=== PATIENT | female | born 1940 | race Caucasian/White ===

== ENCOUNTER 2017-01-28 04:02 | Emergency (ER) | payer OTHER ==
[~2017-01-28] VITALS: Ht 157.5 cm; Wt 95.0 kg
--- NOTE | 2017-01-28 04:11 | ERD ---
ER Documentation Chief Complaint Chief Complaint Abdominal pain HPI The patient is a 77-year-old female, presenting to the ER because of diffuse abdominal pain last couple days, worse tonight. She also complains of diarrhea tonight, denies fever, chills, neck pain, chest pain, dyspnea. She was hospitalized recently at [facility] about 2 weeks ago. She denied dysuria. She does not smoke nor drink, Past medical history: Hypertension, diabetes mellitus Past Surgical history: History of small bowel obstruction ROS All systems reviewed and are negative except as per history of present illness. Physical Exam Vitals Vital Signs Date Time Temp Pulse Resp B/P Pulse Ox O2 Delivery O2 Flow Rate FiO2 01/28/17 04:16 98.5 105 18 121/60 100 Physical Exam Const: No acute distress. Head: Atraumatic. Eyes: Normal Conjunctiva. ENT: Normal External Ears, Nose and Mouth. Neck: Full range of motion. No meningismus. Resp: Clear to auscultation bilaterally. Cardio: Regular rate and rhythm. Abd: Soft, non distended, normal bowel sounds, diffuse abdominal tenderness, no rigidity, rebound, CVA tenderness Skin: No petechiae or rashes. Back: No midline or flank tenderness. Ext: No cyanosis, or edema. Neur: Awake and alert. No focal deficit Psych: Normal Mood and Affect. Result Diagram: 01/28/1744401/28/17444 Results 24 hrs Laboratory Tests Test 01/28/17 04:45 White Blood Count 14.710^3/ul Red Blood Count 5.1010^6/ul Hemoglobin 13.9g/dl Hematocrit 43.0% Mean Corpuscular Volume 84.3fl Mean Corpuscular Hemoglobin 27.3pg Mean Corpuscular Hemoglobin Concent 32.3g/dl Red Cell Distribution Width 13.7% Platelet Count 19665^3/UL Mean Platelet Volume 9.2fl Neutrophils % 77.2% Lymphocytes % 17.2% Monocytes % 3.2% Eosinophils % 1.0% Basophils % 0.4% Nucleated Red Blood Cells % 0.0/100WBC Neutrophils # 11.310^3/ul Lymphocytes # 2.510^3/ul Monocytes # 0.510^3/ul Eosinophils # 0.110^3/ul Basophils # 0.110^3/ul Nucleated Red Blood Cells # 0.010^3/ul Prothrombin Time 13.8Sec Prothrombin Time Ratio 1.1 INR International Normalized Ratio 1.06 Activated Partial Thromboplast Time 31.5Sec Sodium Level 128mmol/L Potassium Level 5.0mmol/L Chloride Level 97mmol/L Carbon Dioxide Level 21mmol/L Anion Gap 15 Blood Urea Nitrogen 20mg/dl Creatinine 1.43mg/dl Glucose Level 184mg/dl Lactic Acid Level 2.8mmol/L Calcium Level 9.0mg/dl Total Bilirubin 0.2mg/dl Direct Bilirubin 0.00mg/dl Indirect Bilirubin 0.2mg/dl Aspartate Amino Transf (AST/SGOT) 21IU/L Alanine Aminotransferase (ALT/SGPT) 20IU/L Alkaline Phosphatase 88IU/L Troponin I 0.016ng/ml Total Protein 8.5g/dl Albumin 3.7g/dl Globulin 4.80g/dl Albumin/Globulin Ratio 0.77 Current Medications Medications (Trade) Dose Ordered Sig/Irma Route PRN Reason Start Time Stop Time Status Last Admin Dose Admin Sodium Chloride 2,950 ml @ 2,950 mls/hr BOLUS X1 ONCE IV 01/28/17 06:00 01/28/17 06:59 Vancomycin HCl 250 ml @ 125 mls/hr ONCE IVPB 01/28/17 06:00 01/28/17 07:59 Piperacillin Sod/ Tazobactam Sod (Zosyn 3.375gm/ 50 ml (Pmx)) 50 ml @ 0 mls/hr ONCE ONCE IV 01/28/17 06:00 01/28/17 06:01 Procedures/[place] [address] Radiology Main Line: [phone] DIAGNOSTIC IMAGING REPORT Patient: OMARI RAYA : 1940 Age: 77 Sex: F MR #: [id number] DOS: 01/28/17 0411 Ordering MD: NASH LAZO MD Location: E/R Room/Bed: PROCEDURE: XR Chest. CLINICAL INDICATION: Possible Sepsis TECHNIQUE: Single portable view of the chest was obtained . COMPARISON: None FINDINGS: Low lung volumes with lower lobe compressive subsegmental atelectasis more significant on the left side. The cardiomediastinal silhouette is mildly prominent. No evidence of congestive heart failure, consolidation, or pneumothorax. IMPRESSION: 1. Low lung volumes with lower lobe compressive subsegmental atelectasis more significant on the left side. 2. Mild cardiomegaly. RPTAT: HRSR Physician Aster Date Time Electronically viewed and signed by Tristian Coppola Physician on 01/28/2017 05 :49 RR/ CC: NASH LAZO MD [place] [address] Radiology Main Line: [phone] DIAGNOSTIC IMAGING REPORT Patient: OMARI RAYA : 1940 Age: 77 Sex: F MR #: [id number] DOS: 01/28/17 0420 Ordering MD: NASH LAZO MD Location: E/R Room/Bed: PROCEDURE: CT Abdomen and pelvis without contrast. CLINICAL INDICATION: Abdominal pain. TECHNIQUE: CT scan of the abdomen and pelvis was performed on a multi- detector high-resolution CT scanner. Contiguous axial images were obtained from the lung bases to the ischial tuberosities without intravenous contrast. Coronal and sagittal reformatted images were also obtained. Images were reviewed on the PACS workstation. One or more of the following dose reduction techniques were used: - Automated exposure control. - Adjustment of the mA and/or kV according to patient size. - Use of iterative reconstruction technique. Exam CTD/vol = 13.04 mGy. Total exam DLP = 735.69 mGy-cm. COMPARISON: None. FINDINGS: Evaluation of the lung bases demonstrates mild bibasilar atelectasis and interstitial pulmonary fibrosis. There is bilateral peribronchial thickening. There are small right hilar calcified lymph nodes. Abdomen: The liver is normal in size. There is no focal mass or dilatation of the biliary tree. The gallbladder is not distended. Multiple gallstones are identified. The spleen, pancreas and bilateral adrenal glands are within normal limits. Bilateral kidneys are normal in size with no contour deforming mass identified. There is a 3 mm calculus within the right renal pelvis. There are punctate right renal calculi. There is no radiopaque ureteral calculus identified. There is no hydronephrosis or hydroureter. There is no retroperitoneal adenopathy. The abdominal aorta is of normal caliber with extensive atherosclerotic calcifications. There are anastomotic sutures at the rectosigmoid junction. There is an area of fatty stranding within the left lower abdomen. There is no bowel obstruction or free air. A normal appendix is identified. There is no diverticulosis or diverticulitis. There is no ascites. Pelvis: The bladder is unremarkable. The uterus and adnexa are within normal limits. There is no significant pelvic adenopathy or free fluid. Evaluation of the osseous structures demonstrates no suspicious lytic or blastic lesion. IMPRESSION: Mild bibasilar atelectasis and interstitial pulmonary fibrosis. There is bilateral peribronchial thickening. Cholelithiasis. Nonobstructing right renal calculi. Vascular calcifications reflective of atherosclerosis. Area of fatty stranding within the left lower abdomen could represent scarring or panniculitis. Otherwise no acute abnormality identified within the abdomen and pelvis. .Jarett Patterson MD, MD Date Time Electronically viewed and signed by .Jarett Patterson MD, MD on 01/28/2017 05:27 .T/ CC: NASH LAZO MD Gallbladder US is pending EKG: Read by emergency physician Rate/Rhythm: Normal Sinus Rhythm 97 beats/min QRS, ST, T-waves: No ST elevation, no T inversion, low voltage Impression: Abnormal EKG MEDICAL MAKING DECISION: The patient is a 77-year-old female, presenting with acute severe sepsis, acute biliary colic. She was treated with normosaline 30 mL/kg IV, mycin IV, Zosyn IV The differential diagnoses considered include but are not limited to cholelithiasis, cholecystitis, cystitis, pancreatitis, hepatitis, gastritis, peptic ulcer disease, gastric ulcer, appendicitis, diverticulitis, cholangitis, choledocholithiasis, partial small bowel obstruction. Admit MDM: Patient's infectious symptoms have not stabilized and the patient is at risk of rapid decompensation. The patient will be admitted for careful hydration, antibiotic therapy, and infectious source control. Severe Sepsis criteria: Infectious source: unknown End organ damage indicated by: Lactate > 2.0 mmol/L Sepsis Management: Time of recognition of severe sepsis/septic shock:5:45 am Within 3 hours of recognition: Blood cultures x 2 before broad-spectrum antibiotics: Yes 30 ml/kg NS bolus completed Initial lactate 2.8 Repeat lactate pending Septic Shock Assessment: Any lactic acid > 4.0 no Persistent hypotension (SBP < 90 or 40 mmHg drop, MAP < 65) despite 30 mL/kg IV fluid bolusno Critical Care: Critical care time 35 minutes Emergent fluid management while maintaining close respiratory support. Provision of immediate and broad-spectrum antibiotic therapy. Simultaneous assessment for possible sources in order to direct targeted therapy. Consideration for invasive and chemical support to prevent cardiopulmonary collapse. Departure Diagnosis: Primary Impression: Severe sepsis Additional Impressions: Biliary colic Hyponatremia Renal insufficiency Condition: Stable Comments I discussed the findings with the patient. I am waiting to discuss the patient with his physician from [facility]. She will be transferred to [facility] Disclaimer: Inadvertent spelling and grammatical errors are likely due to EHR/ dictation software use and do not reflect on the overall quality of patient care. Also, please note that the electronic time recorded on this note does not necessarily reflect the actual time of the patient encounter. NASH LAZO MD Jan 28, 2017 04:11
--- NOTE | 2017-01-28 04:11 | ERD ---
ER Documentation Chief Complaint Chief Complaint Abdominal pain HPI The patient is a 77-year-old female, presenting to the ER because of diffuse abdominal pain last couple days, worse tonight. She also complains of diarrhea tonight, denies fever, chills, neck pain, chest pain, dyspnea. She was hospitalized recently at [facility] about 2 weeks ago. She denied dysuria. She does not smoke nor drink, Past medical history: Hypertension, diabetes mellitus Past Surgical history: History of small bowel obstruction ROS All systems reviewed and are negative except as per history of present illness. Physical Exam Vitals Vital Signs Date Time Temp Pulse Resp B/P Pulse Ox O2 Delivery O2 Flow Rate FiO2 01/28/17 04:16 98.5 105 18 121/60 100 Physical Exam Const: No acute distress. Head: Atraumatic. Eyes: Normal Conjunctiva. ENT: Normal External Ears, Nose and Mouth. Neck: Full range of motion. No meningismus. Resp: Clear to auscultation bilaterally. Cardio: Regular rate and rhythm. Abd: Soft, non distended, normal bowel sounds, diffuse abdominal tenderness, no rigidity, rebound, CVA tenderness Skin: No petechiae or rashes. Back: No midline or flank tenderness. Ext: No cyanosis, or edema. Neur: Awake and alert. No focal deficit Psych: Normal Mood and Affect. Result Diagram: 01/28/1744401/28/17444 Results 24 hrs Laboratory Tests Test 01/28/17 04:45 White Blood Count 14.710^3/ul Red Blood Count 5.1010^6/ul Hemoglobin 13.9g/dl Hematocrit 43.0% Mean Corpuscular Volume 84.3fl Mean Corpuscular Hemoglobin 27.3pg Mean Corpuscular Hemoglobin Concent 32.3g/dl Red Cell Distribution Width 13.7% Platelet Count 13057^3/UL Mean Platelet Volume 9.2fl Neutrophils % 77.2% Lymphocytes % 17.2% Monocytes % 3.2% Eosinophils % 1.0% Basophils % 0.4% Nucleated Red Blood Cells % 0.0/100WBC Neutrophils # 11.310^3/ul Lymphocytes # 2.510^3/ul Monocytes # 0.510^3/ul Eosinophils # 0.110^3/ul Basophils # 0.110^3/ul Nucleated Red Blood Cells # 0.010^3/ul Prothrombin Time 13.8Sec Prothrombin Time Ratio 1.1 INR International Normalized Ratio 1.06 Activated Partial Thromboplast Time 31.5Sec Sodium Level 128mmol/L Potassium Level 5.0mmol/L Chloride Level 97mmol/L Carbon Dioxide Level 21mmol/L Anion Gap 15 Blood Urea Nitrogen 20mg/dl Creatinine 1.43mg/dl Glucose Level 184mg/dl Lactic Acid Level 2.8mmol/L Calcium Level 9.0mg/dl Total Bilirubin 0.2mg/dl Direct Bilirubin 0.00mg/dl Indirect Bilirubin 0.2mg/dl Aspartate Amino Transf (AST/SGOT) 21IU/L Alanine Aminotransferase (ALT/SGPT) 20IU/L Alkaline Phosphatase 88IU/L Troponin I 0.016ng/ml Total Protein 8.5g/dl Albumin 3.7g/dl Globulin 4.80g/dl Albumin/Globulin Ratio 0.77 Current Medications Medications (Trade) Dose Ordered Sig/Irma Route PRN Reason Start Time Stop Time Status Last Admin Dose Admin Sodium Chloride 2,950 ml @ 2,950 mls/hr BOLUS X1 ONCE IV 01/28/17 06:00 01/28/17 06:59 Vancomycin HCl 250 ml @ 125 mls/hr ONCE IVPB 01/28/17 06:00 01/28/17 07:59 Piperacillin Sod/ Tazobactam Sod (Zosyn 3.375gm/ 50 ml (Pmx)) 50 ml @ 0 mls/hr ONCE ONCE IV 01/28/17 06:00 01/28/17 06:01 Procedures/[place] [address] Radiology Main Line: [phone] DIAGNOSTIC IMAGING REPORT Patient: OMARI RAYA : 1940 Age: 77 Sex: F MR #: [id number] DOS: 01/28/17 0411 Ordering MD: NASH LAZO MD Location: E/R Room/Bed: PROCEDURE: XR Chest. CLINICAL INDICATION: Possible Sepsis TECHNIQUE: Single portable view of the chest was obtained . COMPARISON: None FINDINGS: Low lung volumes with lower lobe compressive subsegmental atelectasis more significant on the left side. The cardiomediastinal silhouette is mildly prominent. No evidence of congestive heart failure, consolidation, or pneumothorax. IMPRESSION: 1. Low lung volumes with lower lobe compressive subsegmental atelectasis more significant on the left side. 2. Mild cardiomegaly. RPTAT: HRSR Physician Aster Date Time Electronically viewed and signed by Tristian Coppola Physician on 01/28/2017 05 :49 RR/ CC: NASH LAZO MD [place] [id number] Radiology Main Line: [phone] DIAGNOSTIC IMAGING REPORT Patient: OMARI RAYA : 1940 Age: 77 Sex: F MR #: [id number] DOS: 01/28/17 0420 Ordering MD: NASH LAZO MD Location: E/R Room/Bed: PROCEDURE: CT Abdomen and pelvis without contrast. CLINICAL INDICATION: Abdominal pain. TECHNIQUE: CT scan of the abdomen and pelvis was performed on a multi- detector high-resolution CT scanner. Contiguous axial images were obtained from the lung bases to the ischial tuberosities without intravenous contrast. Coronal and sagittal reformatted images were also obtained. Images were reviewed on the PACS workstation. One or more of the following dose reduction techniques were used: - Automated exposure control. - Adjustment of the mA and/or kV according to patient size. - Use of iterative reconstruction technique. Exam CTD/vol = 13.04 mGy. Total exam DLP = 735.69 mGy-cm. COMPARISON: None. FINDINGS: Evaluation of the lung bases demonstrates mild bibasilar atelectasis and interstitial pulmonary fibrosis. There is bilateral peribronchial thickening. There are small right hilar calcified lymph nodes. Abdomen: The liver is normal in size. There is no focal mass or dilatation of the biliary tree. The gallbladder is not distended. Multiple gallstones are identified. The spleen, pancreas and bilateral adrenal glands are within normal limits. Bilateral kidneys are normal in size with no contour deforming mass identified. There is a 3 mm calculus within the right renal pelvis. There are punctate right renal calculi. There is no radiopaque ureteral calculus identified. There is no hydronephrosis or hydroureter. There is no retroperitoneal adenopathy. The abdominal aorta is of normal caliber with extensive atherosclerotic calcifications. There are anastomotic sutures at the rectosigmoid junction. There is an area of fatty stranding within the left lower abdomen. There is no bowel obstruction or free air. A normal appendix is identified. There is no diverticulosis or diverticulitis. There is no ascites. Pelvis: The bladder is unremarkable. The uterus and adnexa are within normal limits. There is no significant pelvic adenopathy or free fluid. Evaluation of the osseous structures demonstrates no suspicious lytic or blastic lesion. IMPRESSION: Mild bibasilar atelectasis and interstitial pulmonary fibrosis. There is bilateral peribronchial thickening. Cholelithiasis. Nonobstructing right renal calculi. Vascular calcifications reflective of atherosclerosis. Area of fatty stranding within the left lower abdomen could represent scarring or panniculitis. Otherwise no acute abnormality identified within the abdomen and pelvis. .Jarett Patterson MD, MD Date Time Electronically viewed and signed by .Jarett Patterson MD, MD on 01/28/2017 05:27 .T/ CC: NASH LAZO MD Gallbladder US is pending EKG: Read by emergency physician Rate/Rhythm: Normal Sinus Rhythm 97 beats/min QRS, ST, T-waves: No ST elevation, no T inversion, low voltage Impression: Abnormal EKG MEDICAL MAKING DECISION: The patient is a 77-year-old female, presenting with acute severe sepsis, acute biliary colic. She was treated with normosaline 30 mL/kg IV, mycin IV, Zosyn IV The differential diagnoses considered include but are not limited to cholelithiasis, cholecystitis, cystitis, pancreatitis, hepatitis, gastritis, peptic ulcer disease, gastric ulcer, appendicitis, diverticulitis, cholangitis, choledocholithiasis, partial small bowel obstruction. Admit MDM: Patient's infectious symptoms have not stabilized and the patient is at risk of rapid decompensation. The patient will be admitted for careful hydration, antibiotic therapy, and infectious source control. Severe Sepsis criteria: Infectious source: unknown End organ damage indicated by: Lactate > 2.0 mmol/L Sepsis Management: Time of recognition of severe sepsis/septic shock:5:45 am Within 3 hours of recognition: Blood cultures x 2 before broad-spectrum antibiotics: Yes 30 ml/kg NS bolus completed Initial lactate 2.8 Repeat lactate pending Septic Shock Assessment: Any lactic acid > 4.0 no Persistent hypotension (SBP < 90 or 40 mmHg drop, MAP < 65) despite 30 mL/kg IV fluid bolusno Critical Care: Critical care time 35 minutes Emergent fluid management while maintaining close respiratory support. Provision of immediate and broad-spectrum antibiotic therapy. Simultaneous assessment for possible sources in order to direct targeted therapy. Consideration for invasive and chemical support to prevent cardiopulmonary collapse. Departure Diagnosis: Primary Impression: Severe sepsis Additional Impressions: Biliary colic Hyponatremia Renal insufficiency Condition: Stable Comments I discussed the findings with the patient. I am waiting to discuss the patient with his physician from [facility]. She will be transferred to [facility] Disclaimer: Inadvertent spelling and grammatical errors are likely due to EHR/ dictation software use and do not reflect on the overall quality of patient care. Also, please note that the electronic time recorded on this note does not necessarily reflect the actual time of the patient encounter. NASH LAZO MD Jan 28, 2017 04:11
[2017-01-28 04:16] VITALS: Ht 157.5 cm; Wt 95.0 kg
--- NOTE | 2017-01-28 05:27 | RADRPT ---
PROCEDURE: CT Abdomen and pelvis without contrast. CLINICAL INDICATION: Abdominal pain. TECHNIQUE: CT scan of the abdomen and pelvis was performed on a multi-detector high-resolution CT scanner. Contiguous axial images were obtained from the lung bases to the ischial tuberosities wit hout intravenous contrast. Coronal and sagittal reformatted images were also obtained. Images were reviewed on the PACS workstation. One or more of the following dose reduction techniques were used: - Automated exposure control. - Adjustment of the mA and/or kV according to patient size. - Use of iterative reconstruction technique. Exam CTD/vol = 13.04 mGy. Total exam DLP = 735.69 mGy-cm. COMPARISON: None. FINDINGS: Evaluation of the lung bases demonstrates mild bibasilar atelectasis and interstitial pulmonary fibr osis. There is bilateral peribronchial thickening. There are small right hilar calcified lymph nodes . Abdomen: The liver is normal in size. There is no focal mass or dilatation of the biliary tree. T he gallbladder is not distended. Multiple gallstones are identified. The spleen, pancreas and bilate ral adrenal glands are within normal limits. Bilateral kidneys are normal in size with no contour d eforming mass identified. There is a 3 mm calculus within the right renal pelvis. There are punctat e right renal calculi. There is no radiopaque ureteral calculus identified. There is no hydronephro sis or hydroureter. There is no retroperitoneal adenopathy. The abdominal aorta is of normal calib er with extensive atherosclerotic calcifications. There are anastomotic sutures at the rectosigmoid junction. There is an area of fatty stranding wit hin the left lower abdomen. There is no bowel obstruction or free air. A normal appendix is identif ied. There is no diverticulosis or diverticulitis. There is no ascites. Pelvis: The bladder is unremarkable. The uterus and adnexa are within normal limits. There is no significant pelvic adenopathy or free fluid. Evaluation of the osseous structures demonstrates no suspicious lytic or blastic lesion. IMPRESSION: Mild bibasilar atelectasis and interstitial pulmonary fibrosis. There is bilateral peribronchial thi ckening. Cholelithiasis. Nonobstructing right renal calculi. Vascular calcifications reflective of atherosclerosis. Area of fatty stranding within the left lower abdomen could represent scarring or panniculitis. Otherwise no acute abnormality identified within the abdomen and pelvis. .Jarett Patterson MD, MD Date Time Electronically viewed and signed by .Jarett Patterson MD, MD on 01/28/2017 05:27 .T/
--- NOTE | 2017-01-28 05:50 | RADRPT ---
PROCEDURE: XR Chest. CLINICAL INDICATION: Possible Sepsis TECHNIQUE: Single portable view of the chest was obtained . COMPARISON: None FINDINGS: Low lung volumes with lower lobe compressive subsegmental atelectasis more significant on the left s christoph. The cardiomediastinal silhouette is mildly prominent. No evidence of congestive heart failure, consolidation, or pneumothorax. IMPRESSION: 1. Low lung volumes with lower lobe compressive subsegmental atelectasis more significant on the le ft side. 2. Mild cardiomegaly. RPTAT: HRSR Physician Aster Date Time Electronically viewed and signed by Physician Aster on 01/28/2017 05:49 RR/
[2017-01-28] MEDS: PIPER-TAZO 3.375 GM IV (PMX) 50 ML IV ONE ×2 (06:00→06:42)
[2017-01-28] MEDS ORDERED: SOD CHLORIDE 0.9% 2,950 ML IV ONE (06:00)
[2017-01-28] MEDS ORDERED: VANCOMYCIN 1 GM (PMX) 250 ML IVPB SCH (06:00)
--- NOTE | 2017-01-28 06:31 | RADRPT ---
PROCEDURE: Abdominal ultrasound, limited. CLINICAL INDICATION: Abdominal pain. TECHNIQUE: Multiple real-time images were acquired of the patient's right upper abdomen utilizing a high resolution transducer. COMPARISON: None FINDINGS: The liver demonstrates normal echogenicity and size measuring 15.5 cm. There is no focal mass or in trahepatic biliary ductal dilatation. The portal vein is patent. The gallbladder is not distended. Multiple echogenic gallstones are identified. There is a negative sonographic Leo's sign. Ther e is no pericholecystic fluid or gallbladder wall thickening. The common bile duct measures 4.5 mm in maximal dimension. The visualized portions of the pancreas are unremarkable. No free fluid is i dentified. The right kidney is normal size and echogenicity measuring 7.2 cm. There is no focal renal mass or echogenic calculus identified. There is no obstructive uropathy. IMPRESSION: Cholelithiasis without ultrasound evidence of cholecystitis. .Jarett Patterson MD, Date Time Electronically viewed and signed by .Jarett Patterson MD, MD on 01/28/2017 06:31 .T/
[2017-01-28 07:21] VITALS: BP 131/53; PULSE 82; RESP 18; TEMP 98.3
== END 2017-01-28 07:53 | disposition short-term general hospital (02) ==
LOC: E/R 04:02
DX: A41.9 Sepsis, unspecified organism (principal); R65.20 Severe sepsis without septic shock; K80.50 Calculus of bile duct without cholangitis or cholecystitis without obstruction; E87.1 Hypo-osmolality and hyponatremia; N28.9 Disorder of kidney and ureter, unspecified; I10 Essential (primary) hypertension; E11.9 Type 2 diabetes mellitus without complications
CPT/HCPCS: 71010; 74176; 76705; 80053; 81001; 82150; 83605; 83690; 84484; 85025; 85610; 85730; 87040; 87045; 87075; 87086; 93005; 96374; 96375; 99291; J2543; J3370; J7030; P9612